=== PATIENT | female | born 1980 | race Caucasian/White ===

== ENCOUNTER 2020-06-29 15:06 | Emergency (ER) | payer OTHER ==
[~2020-06-29] VITALS: Ht 165.1 cm; Wt 99.3 kg
[2020-06-29 15:10] VITALS: BP_SYST 123
--- NOTE | 2020-06-29 15:10 | NUR ---
Patient to ER bed 07 to gown for evaluation. Side rails up.
--- NOTE | 2020-06-29 15:12 | NUR ---
Patient arrived in the ED c/o LEFT ANKLE PAIN S/P MECHANICAL FALL THIS MORNING. Denied any head injury or loss of consciousness. Denied any chest pain or shortness of breath. Denied any fevers, chills, nausea or vomiting. Patient is alert and oriented x4, respirations even and unlabored, speaking in full sentences, and ambulating with a steady gait. VSS, pain level 8/10 - Taking Motrin for it. Informed of the approximate wait time. Instructed to notify ED staff for any changes in condition or worsening of symptoms while waiting to be seen by an ED provider. Patient verbalized understanding.
--- NOTE | 2020-06-29 15:15 | NUR ---
ER Dr. Moses Alvarado at bedside examining patient.
--- NOTE | 2020-06-29 16:17 | NUR ---
Patient given written and verbal discharge instructions and verbalizes understanding. ER MD discussed with patient the results and treatment provided. Patient in stable condition. ID arm band removed. Rx of [place] and Motrin given. Patient educated on pain management and to follow up with PMD. Pain Scale 0/10. Opportunity for questions provided and answered. Medication side effect fact sheet provided.
[2020-06-29] MEDS ORDERED: KETOROLAC TROMETHAMINE 60 MG/2 ML VIAL IM ONE ×2 (16:30→16:41)
[2020-06-29 16:33] VITALS: BP_SYST 123
== END 2020-06-29 16:17 | disposition home or self-care (01) ==
LOC: SED 15:06
DX: S90.02XA Contusion of left ankle, initial encounter (principal); E78.5 Hyperlipidemia, unspecified; W16.031A Fall into swimming pool striking wall causing drowning and submersion, initial encounter; Y93.89 Activity, other specified; Y92.89 Other specified places as the place of occurrence of the external cause; Y99.8 Other external cause status
CPT/HCPCS: 29515; 73610; 96372; 99283; J1885

== ENCOUNTER 2021-08-11 10:47 | Emergency (ER) | payer OTHER ==
[~2021-08-11] VITALS: Ht 165.1 cm; Wt 95.3 kg
[2021-08-11 10:50] VITALS: BP_SYST 124
--- NOTE | 2021-08-11 10:50 | NUR ---
PT BIBA, C/O BACK PAIN , COUGH, SOB, NAUSOUS, WEAKNESS, DIZZIENESS, NO APPETITE. PT TESTED AND COVID POSITIVE OF 08/07/21. PT STATES FATHER IS COVID POSITIVE ALSO AND WAS TAKING CARE OF HIM. PT A&OX4, AMBULATORY, STABLE, NO DISTRESS NOTED AT THIS TIME.
--- NOTE | 2021-08-11 10:50 | NUR ---
Patient to ER TENT 1 to gown for evaluation. Side rails up.
--- NOTE | 2021-08-11 11:18 | NUR ---
ER Dr. AVITIA at bedside examining patient.
[2021-08-11] MEDS ORDERED: ZIT250 PO (13:42)
[2021-08-11 14:10] VITALS: BP_SYST 124
--- NOTE | 2021-08-11 14:12 | NUR ---
Patient given written and verbal discharge instructions and verbalizes understanding. ER MD Dr. Martinez discussed with patient the results and treatment provided. Patient in stable condition. ID arm band removed. Rx of Zithromax given. Patient educated on pain management and to follow up with PMD. Pain Scale 0/10. Opportunity for questions provided and answered. Medication side effect fact sheet provided.
== END 2021-08-11 14:12 | disposition home or self-care (01) ==
LOC: SED 10:47
DX: U07.1 COVID-19 (principal); R06.00 Dyspnea, unspecified
CPT/HCPCS: 71045; 86710; 87426; 99284; C9803; U0003; 36415